=== PATIENT | female | born 1930 | race Caucasian/White ===

== ENCOUNTER 2016-12-03 11:18 | Observation (INO) | payer MEDICARE, OTHER ==
--- NOTE | ~2016-12-03 | DS ---
Unit #: [id number] #: [id number] Patient: BRIEN ARCINIEGA [id number] [address] [place], [place] [address] [id number] MR#: [id number] NAME: BRIEN ARCINIEGA ROOM: [facility] Age: 86 Sex: F Admission Date: 12/03/2016 : 1930 Discharge Date: 12/04/2016 Attending Physician: Vito Silva M.D. Primary Care Physician: Jaimee Zaldivar M.D. DISCHARGE SUMMARY ADMITTING DIAGNOSIS Microscopic hematuria. DISCHARGE DIAGNOSIS Microscopic hematuria, status post cystoscopy and bladder biopsy. ADMITTING INFORMATION Mrs. Arciniega is a pleasant 86-year-old female who had erythematous areas on her bladder during workup for microscopic hematuria. Based on this, the risks, benefits, and alternatives of the above procedures were discussed with the patient, informed consent was obtained, and she wished to proceed. HOSPITAL COURSE The patient was admitted. She underwent cystoscopy and bladder biopsy. She tolerated this well. She was admitted overnight for monitoring for bleeding and for continuous bladder irrigation. Her urine was clear. On postoperative day one, her catheter was removed. She will be discharged home. She will resume her regular medications, but she will hold her Xarelto for three days. She understands the risk associated with this. She will also be placed on Cipro 500 mg p.o. b.i.d. x5 days, as well as [place] 5/325 at 1-2 p.o. q.6 hours p.r.n. She will follow up in two weeks to review her pathology or follow up sooner with any concerns including temperature greater than 101, inability to tolerate fluids, pain not controlled by p.o. pain medications, chest pain, unilateral lower extremity swelling, or any other concerns. Dictated by... Soham Quintanilla/adrianna TD: 12/05/2016 20:28 JOB #: [id number] DISCHARGE SUMMARY X Vito Silva MD DISCHARGE SUMMARY
--- NOTE | ~2016-12-03 | EKG ---
PATIENT: BRIEN ARCINIEGA UNIT #: [id number] Ventricular Rate: 86 BPM Atrial Rate: 326 BPM QRS Duration: 84 ms Q-T Interval: 372 ms QTC Calculation(Bezet): 445 ms Calculated R [place]: 37 degrees Calculated T [place]: 177 degrees Diagnosis Line: Atrial fibrillation ventricular-paced complexes Diagnosis Line: ST and T wave abnormality, consider inferior Diagnosis Line: ischemia or digitalis effect Diagnosis Line: ST and T wave abnormality, consider anterolateral Diagnosis Line: ischemia or digitalis effect Diagnosis Line: Abnormal ECG Diagnosis Line: When compared with ECG of 31-MAY-2016 06:41, Diagnosis Line: Atrial fibrillation has replaced Electronic Diagnosis Line: ventricular pacemaker Diagnosis Line: Confirmed by MELONY LEW MD ([id number]) on Diagnosis Line: 12/04/2016 4:10:25 PM INTERPRETING MD: VIPIN GUTIERREZ
--- NOTE | ~2016-12-03 | OR ---
Unit #: [id number] #: [id number] Patient: BRIEN ARCINIEGA [id number] [address] [address] [id number] Vielka MR#: [id number] NAME: BRIEN ARCINIEGA ROOM: [facility] Date of Procedure: 12/03/2016 Admission Date: 12/03/2016 Surgeon: Vito Silva M.D. : 1930 Attending Physician: Vito Silva M.D. Primary Care Physician: Jaimee Zaldivar M.D. OPERATIVE REPORT PREOPERATIVE DIAGNOSIS Microscopic hematuria. POSTOPERATIVE DIAGNOSIS Microscopic hematuria. PROCEDURES PERFORMED 1. Cystoscopy. 2. Bladder biopsy with fulguration. ANESTHESIA General. INDICATIONS FOR PROCEDURE Ms. Arciniega is a pleasant 86-year-old female with microscopic hematuria. CT revealed essentially negative upper tracts, but her cystoscopy revealed multiple erythematous areas in the bladder. The risks, benefits, and alternatives, including bleeding, infection, damage to adjacent structures, bladder perforation, need for further surgery, and all other risks were discussed with the patient. Cardiac clearance was obtained and hold her anticoagulation. Full informed consent was obtained. She wished to proceed. DESCRIPTION OF PROCEDURE The patient was taken to the operative suite and properly identified. After the application of satisfactory general anesthetic, the patient was placed in dorsal lithotomy position. All pressure points were padded to satisfaction of surgical, anesthetic, and nursing teams. Her genitalia were prepped and draped in usual sterile fashion. I introduced the rigid 22-[place] cystoscope. The bladder had no tumors, stones, or masses, but there are multiple erythematous areas. I used cold-cut biopsy forceps and I took 2 biopsies of the erythematous areas in the base of her bladder. Hemostasis was achieved with the Bovie. Care was taken to ensure that we did not perforate the bladder and then we were well away from the ureteral orifices. I placed a 20-[place] three-way Portillo catheter to continuous bladder irrigation. Her urine was clear at the end of the case. The patient tolerated the procedure well without complications. She was transported stable and extubated to PACU. Dictated by... Vito Silva M.D. Unit #: [id number] #: [id number] Patient: BRIEN ARCINIEGA/clint TD: 12/04/2016 04:31 JOB #: [id number] OPERATIVE REPORT X Vito Silva MD PROCEDURE OPERATIVE NOTE
[~2016-12-03 11:18] MED LIST: ASPIRIN PO; ASPIRIN81 MG PO; ATENOLOL25 MG PO; ATENOLOL50 MG PO; B6100 MG PO; BACTRIM DS TABL1 TA1 PO; BAYER ASPIRIN325 M1 PO; CARDIZEM PO; CELEXA10 MG PO; CLEOCIN150 M2 PO; CLONAZEPAM0.5 MG PO; COUMADIN PO; CRESTOR5 MG PO; HCTZ PO; KCL PO; KEFLEX500 M1 PO; LEVOTHYROXINE50 MC1 PO; LEVOTHYROXINE50 MCG PO; LIPITOR PO; NEXIUM PO; OMEPRAZOLE10 M1 PO; PACERONE PO; PATIENT'S PHARMACY; PHENERGAN25 MG PO; PLAVIX PO; PREDNISONE PO; SYNTHROID PO; VESICARE PO; VITAMIN B6200 MG PO; VITAMIN B650 M1 PO; VITAMIN D5000 UNIT PO; XARELTO20 MG PO; ZITHROMAX PO; [UNRECOGNIZED DRUG - OTHER] PO
[2016-12-03 12:41] LABS: HEMATOCRIT 35.4 % (35.0-45.0); HEMOGLOBIN 12.1 gm/dL (12.0-16.0); MEAN CELL VOLUME 87.7 FL (83-96); MEAN CORPUSCULAR HEMOGLOBIN 30.1 PG (28-34); MEAN CORPUSCULAR HGB CONC 34.3 g/dL (30-36); RED BLOOD COUNT 4.03 X10e (3.90-5.30); RED CELL DISTRIBUTION WIDTH 15.6 % (11.0-15.5); WHITE BLOOD COUNT 6.9 X10e3 (4.0-10.5)
[2016-12-03 13:15] LABS: BLOOD UREA NITROGEN 10 mg/dL (9-23); BUN/CREATININE RATIO 16.66; CALCIUM SERUM 9.8 mg/dL (8.4-10.2); CARBON DIOXIDE 24 mmol/L (22-31); CHLORIDE 102 mmol/L (100-111); CREATININE SERUM 0.6 mg/dL (0.6-1.4); GLOM FILT RATE Estimated ABOVE60 mL/min (>60); GLUCOSE FASTING 122 mg/dL (70-110); POTASSIUM 4.3 mmol/L (3.5-5.1); SODIUM 136 mmol/L (135-145)
[2016-12-04] MEDS ORDERED: HYDROCODON-ACE1 EAC7 PO (13:20)
[2016-12-04] MEDS ORDERED: CIPRO PO (13:21)
[2017-05-27] MEDS ORDERED: AZO CRANBERRY1 EACH PO (08:14)
[2017-05-27] MEDS ORDERED: COLESTID PO (10:46)
[2017-05-27] MEDS ORDERED: MIRALAX17 G2 PO (11:06)
[2017-05-27] MEDS ORDERED: SENNA PO (11:08)
== END 2016-12-04 14:00 | disposition home or self-care (01) ==
LOC: CSUR 11:18 → CPACUOF 14:30 → C4C 18:45
PROVIDERS: Urology
DX: R31.29 Other microscopic hematuria (principal); N32.89 Other specified disorders of bladder; I10 Essential (primary) hypertension; M19.90 Unspecified osteoarthritis, unspecified site; Z85.828 Personal history of other malignant neoplasm of skin; E03.9 Hypothyroidism, unspecified; Z95.1 Presence of aortocoronary bypass graft; Z79.01 Long term (current) use of anticoagulants; Z88.0 Allergy status to penicillin; Z88.5 Allergy status to narcotic agent; Z88.8 Allergy status to other drugs, medicaments and biological substances
CPT/HCPCS: 80048; 85027; 88305; 93005; G0378; J1956; J2405; J3010

== ENCOUNTER 2016-12-11 19:48 | Emergency (ER) | payer MEDICARE, OTHER ==
[2016-12-11 19:35] LABS: BASOPHIL# 0.1 X10e3 (0-0.3); BASOPHIL% 2.3 % (0-2.5); EOSINOPHIL# 0.1 X10e3 (0-0.7); EOSINOPHIL% 2.7 % (0.0-7.0); HEMATOCRIT 32.7 % (35.0-45.0); HEMOGLOBIN 10.9 gm/dL (12.0-16.0); LYMPHOCYTE# 1.5 X10e3 (1.0-3.5); LYMPHOCYTE% 29.8 % (17.0-45.0); MEAN CELL VOLUME 87.5 FL (83-96); MEAN CORPUSCULAR HEMOGLOBIN 29.3 PG (28-34); MEAN CORPUSCULAR HGB CONC 33.5 g/dL (30-36); MEAN PLATELET VOLUME 7.8 FL (6.5-11.5); MONOCYTE# 0.5 X10e3 (0-1.0); MONOCYTE% 10.4 % (3.0-12.0); NEUTROPHIL# 2.8 X10e3 (1.5-7.1); NEUTROPHIL% 54.8 % (40-75); PLATELET COUNT 187 X10e3 (140-420); RED BLOOD COUNT 3.74 X10e (3.90-5.30); RED CELL DISTRIBUTION WIDTH 15.1 % (11.0-15.5); WHITE BLOOD COUNT 5.2 X10e3 (4.0-10.5)
[2016-12-11 19:36] LABS: DIFF IND NO
[~2016-12-11 19:48] MED LIST changes: +CIPRO PO; +HYDROCODON-ACE1 EAC7 PO
[2016-12-11 20:08] LABS: ALBUMIN SERUM 3.8 g/dL (3.5-5.0); ALKALINE PHOSPHATASE 52 U/L (32-92); ALT (SGPT) 23 U/L (10-40); AST (SGOT) 30 U/L (10-42); BILIRUBIN, DIRECT 0.2 mg/dL (0.0-0.2); BILIRUBIN,INDIRECT 0.6 mg/dL (0.0-0.9); BILIRUBIN,TOTAL 0.8 mg/dL (0.2-2.0); BLOOD UREA NITROGEN 11 mg/dL (9-23); BUN/CREATININE RATIO 15.71; CALCIUM SERUM 9.1 mg/dL (8.4-10.2); CARBON DIOXIDE 24 mmol/L (22-31); CHLORIDE 110 mmol/L (100-111); CREATININE SERUM 0.7 mg/dL (0.6-1.4); GLOM FILT RATE Estimated ABOVE60 mL/min (>60); GLUCOSE FASTING 130 mg/dL (70-110); POTASSIUM 3.8 mmol/L (3.5-5.1); PROTEIN TOTAL SERUM 7.1 g/dL (6.0-8.3); SODIUM 136 mmol/L (135-145)
[2016-12-11 20:21] LABS: URINE SOURCE CLEAN CATCH
[2016-12-11 20:30] LABS: URINE BILIRUBIN NEG (NEG); URINE BLOOD 4+ (NEG); URINE GLUCOSE NORM (NORM); URINE KETONE NEG (NEG); URINE LEUKOCYTE ESTERASE NEG (NEG); URINE NITRATE NEG (NEG); URINE PROTEIN 3+ (NEG); URINE UROBILINOGEN NORM (NORM)
[2016-12-11 20:35] LABS: URINE APPEARANCE HAZY; URINE COLOR RED
[2016-12-11 20:36] LABS: CULTURE INDICATED? NO; URBCS1 AUWI INNUM /[HPF] (0-2); UWBCS1 AUWI 0-2 (0-5)
[2017-05-27] MEDS ORDERED: AZO CRANBERRY1 EACH PO (08:14)
[2017-05-27] MEDS ORDERED: COLESTID PO (10:46)
[2017-05-27] MEDS ORDERED: MIRALAX17 G2 PO (11:06)
[2017-05-27] MEDS ORDERED: SENNA PO (11:08)
== END 2016-12-11 21:55 | disposition home or self-care (01) ==
LOC: CED 19:48
PROVIDERS: Emergency Medicine
DX: R31.0 Gross hematuria (principal); I10 Essential (primary) hypertension; I25.10 Atherosclerotic heart disease of native coronary artery without angina pectoris; I48.91 Unspecified atrial fibrillation; Z90.49 Acquired absence of other specified parts of digestive tract; Z88.0 Allergy status to penicillin; Z88.8 Allergy status to other drugs, medicaments and biological substances; Z88.5 Allergy status to narcotic agent; Z79.899 Other long term (current) drug therapy
CPT/HCPCS: 36415; 80048; 80076; 81003; 85025; 86850; 86900; 86901; 99283

== ENCOUNTER → 2017-05-27 | Day surgery (SDC) | payer MEDICARE, OTHER ==
[~2017-05-27] MED LIST changes: +AZO CRANBERRY1 EACH PO; +COLESTID PO; +MIRALAX17 G2 PO; +SENNA PO
--- NOTE | ~2017-05-27 | OR ---
Unit #: [id number] #: [id number] Patient: BRIEN ARCINIEGA [id number] [address] [place], [place] [address] [id number] MR#: [id number] NAME: BRIEN ARCINIEGA ROOM: Date of Procedure: 05/27/2017 Admission Date: 05/27/2017 Surgeon: Gurpreet Chanel M.D. : 1930 Attending Physician: Gurpreet Chanel M.D. Primary Care Physician: Jaimee Zaldivar M.D. OPERATIVE REPORT PREOPERATIVE DIAGNOSES The patient has presented with a history of epigastric pain. In addition, she also has a high risk for colon cancer having had personal history of colon polyps. Lastly, she has generalized abdominal pain too. PROCEDURES PERFORMED Upper gastrointestinal endoscopy and biopsy as well as colonoscopy with polypectomy. POSTOPERATIVE DIAGNOSES For upper endoscopy: The patient had mild prepyloric antral nonerosive gastritis. A biopsy was obtained and a CLOtest. Otherwise, examination is normal up to third part of the duodenum. For colonoscopy: 1. The patient had 2 polyps, one each in the transverse colon and descending colon. These were 7 mm and 1 cm each. Both were removed using snare polypectomy, retrieved, and sent for histology. 2. Mild sigmoid and descending colon diverticulosis. 3. Rest of the examination up to cecum and terminal ileum was normal. The quality of the prep was good. RECOMMENDATIONS 1. Omeprazole or pantoprazole 40 mg p.o. daily. 2. Daily MiraLAX and p.r.n. Senokot in view of history of constipation. 3. Follow up in the office in 3 months' time. 4. Repeat colonoscopy in 5 years. SEDATION USED MAC. DESCRIPTION OF PROCEDURE Following detailed explanation of potential risks and complications of an upper endoscopy and a colonoscopy, namely perforation, bleeding, and complications related to sedation, the patient was brought to GI lab and laid in the left lateral decubitus position. Lubricated tip of the Olympus video upper endoscope was passed through the bite block into the proximal esophagus under direct vision. The entire esophageal mucosa was examined and appeared normal. Z-line was nicely demarcated with there being no esophagitis or hiatus hernia. The scope was then advanced into the gastric cavity and the latter was insufflated. Mucosa of the fundus, body, and antrum was examined. The patient was noted to have diffuse Unit #: [id number] #: [id number] Patient: BRIEN ARCINIEGA prepyloric antral erythema with there being no erosions or ulcers. Pylorus was intubated with visualization of the normal duodenal bulb and second and third part of the duodenum. Upon withdrawal and retroflexion, the incisura, cardia, and greater curve were examined and a biopsy was obtained from the antrum for CLOtest. The scope was then withdrawn into the distal esophagus. The entire esophageal mucosa was examined all the way up to pharynx and no additional findings were noted. The examination table was then turned by 180 degrees and the patient was positioned for a colonoscopy. A digital rectal examination was performed, which was normal. Lubricated tip of the Olympus video colonoscope was inserted through the anus and advanced under direct vision. The scope was then advanced and passed up to sigmoid into descending colon. Scant small diverticula were noted in this area. The scope tip was then navigated all the way up to cecum with visualization of the ileocecal valve and the appendiceal orifice. Preparation was good with good visualization and photodocumentation was obtained. Last few inches of the terminal ileum were also visualized after intubation of the ileocecal valve and appeared normal. Successive segments of the colonic mucosa were examined upon withdrawal. Two polyps were noted, one each in the proximal, transverse, and mid descending colon, these were 7 and 10 mm each. Both were removed using snare polypectomy. They were retrieved and sent for histology. No additional polyps were noted. Other than the scant diverticula seen in the left side, no other abnormalities were found. The patient did not have any hemorrhoids at the anal verge. The scope was then withdrawn. Multiple random colonic biopsies were also obtained from throughout the colon to rule out microscopic or collagenous colitis. The scope was then withdrawn. The patient returned to the recovery area. She tolerated the procedure without any postprocedure complications. Dictated by.Jose. Soham Agustin TD: 05/27/2017 15:15 JOB #: [id number] CC: Jaimee Zaldivar M.D. OPERATIVE REPORT Page 1 of 1 X Gurpreet Chanel MD PROCEDURE OPERATIVE NOTE
== END | disposition home or self-care (01) ==
LOC: COPS 07:15
DX: D12.3 Benign neoplasm of transverse colon (principal); D12.4 Benign neoplasm of descending colon; K29.80 Duodenitis without bleeding; K29.70 Gastritis, unspecified, without bleeding; I25.10 Atherosclerotic heart disease of native coronary artery without angina pectoris; K21.9 Gastro-esophageal reflux disease without esophagitis; M19.90 Unspecified osteoarthritis, unspecified site; E78.5 Hyperlipidemia, unspecified; I48.91 Unspecified atrial fibrillation; Z87.440 Personal history of urinary (tract) infections; Z95.0 Presence of cardiac pacemaker; Z86.010 Personal history of colon polyps; Z90.49 Acquired absence of other specified parts of digestive tract; Z90.710 Acquired absence of both cervix and uterus; Z88.0 Allergy status to penicillin; Z88.8 Allergy status to other drugs, medicaments and biological substances; Z86.73 Personal history of transient ischemic attack (TIA), and cerebral infarction without residual deficits
CPT/HCPCS: 87077; 88305